=== PATIENT | female | born 1975 | race Caucasian/White ===

== ENCOUNTER 2021-10-25 14:36 | Emergency (ER) | payer BC ==
[~2021-10-25] VITALS: Ht 162.6 cm; Wt 64.4 kg
--- NOTE | 2021-10-25 15:10 | NUR ---
Pt triaged and placed in tent.
[2021-10-25 15:14] VITALS: BP_SYST 133
--- NOTE | 2021-10-25 15:35 | NUR ---
Patient to ER bed 6 to gown for evaluation. Side rails up. Report given to DICKSON Wilson.
--- NOTE | 2021-10-25 15:37 | NUR ---
DR JUAN DAVID THOMAS ROOM FOR EXAM
--- NOTE | 2021-10-25 15:41 | NUR ---
PT COMES IN TO ER WITH MULTIPLE COMPLAINTS, STATES HER WANTED HER TO COME IN AND GET CHECKED OUT. PT ADMITS THAT SHE'S GOING UNDER STRESSS AT WORK AND GOING THRU EMOTIONAL STRESS BECAUSE SHE IS GOING THRU MENOPAUSE. STATES HER HANDS FEEL NUMB AND TINGLING. DENIES ANY CP OR SOB. RESP EVEN AND UNLABORED.
--- NOTE | 2021-10-25 15:49 | NUR ---
EKG BEING DONE ATT THIS TIME.
--- NOTE | 2021-10-25 16:05 | NUR ---
Patient given written and verbal discharge instructions and verbalizes understanding. ER MD discussed with patient the results and treatment provided. Patient in stable condition. ID arm band removed. No prescriptions given. Patient educated on pain management and to follow up with PMD. Pain Scale 0. Opportunity for questions provided and answered. Medication side effect fact sheet provided.
== END 2021-10-25 16:11 | disposition home or self-care (01) ==
LOC: SED 14:36
DX: F41.9 Anxiety disorder, unspecified (principal); F43.9 Reaction to severe stress, unspecified; R00.0 Tachycardia, unspecified
CPT/HCPCS: 93005; 99283

== ENCOUNTER 2023-03-13 18:48 | Emergency (ER) | payer BC ==
[~2023-03-13] VITALS: Ht 162.6 cm; Wt 67.1 kg
[2023-03-13 19:03] VITALS: BP_SYST 142
[2023-03-13 20:10] LABS: BASOPHILS # (AUTO) 0.1 K/uL (0.0-0.2); BASOPHILS % (AUTO) 1.1 % (0.0-2.0); EOSINOPHILS # (AUTO) 0.1 K/uL (0.0-0.4); EOSINOPHILS % (AUTO) 1.3 % (0.0-4.0); HEMATOCRIT 44.3 % (36-48); HEMOGLOBIN 14.6 g/dL (12.0-16.0); LYMPHOCYTES # (AUTO) 1.8 K/uL (1.0-5.5); LYMPHOCYTES % (AUTO) 30.5 % (20.5-51.5); MEAN CORPUSCULAR HEMOGLOBIN 29 pg (27-31); MEAN CORPUSCULAR HGB CONC 33 % (32-36); MEAN CORPUSCULAR VOLUME 89 fL (79.0-98.0); MONOCYTES # (AUTO) 0.6 K/uL (0.0-1.0); MONOCYTES % (AUTO) 9.2 % (1.7-9.3); NEUTROPHILS # (AUTO) 3.5 K/uL (1.8-7.7); NEUTROPHILS % (AUTO) 57.9 % (40.0-70.0); PLATELET COUNT (AUTO) 199 K/uL (130-430); RED BLOOD CELL COUNT(AUTO) 4.96 MIL/uL (4.2-6.2); RED CELL DISTRIBUTION WIDTH 14.1 % (9.0-15.0)
[2023-03-13 20:15] LABS: BILIRUBIN,URINE NEGATIVE (NEGATIVE); BLOOD, URINE NEGATIVE (NEGATIVE); CLARITY/URINE CLEAR (CLEAR); COLOR,URINE YELLOW (YELLOW); GLUCOSE,URINE NEGATIVE (NEGATIVE); KETONES,URINE NEGATIVE (NEGATIVE); LEUKOCYTE ESTERASE ,URINE 1+ (NEGATIVE); NITRITE, URINE NEGATIVE (NEGATIVE); PH,URINE 6.5 (5.0-8.0); PROTEIN URINE NEGATIVE (NEGATIVE); UROBILINOGEN,URINE 0.2 (0.2-1.0)
[2023-03-13 20:15] LABS: ALBUMIN 4.1 g/dL (3.4-4.8); CALCIUM 9.1 mg/dL (8.4-11.0); CREATININE 0.59 mg/dL (0.55-1.30); TOTAL BILIRUBIN 0.5 mg/dL (0.0-1.0)
[2023-03-13 20:27] LABS: BACTERIA,URINE RARE /HPF (None Seen); MUCUS,URINE None Seen /LPF (None Seen); RBC,URINE NONE SEEN /HPF (0-3); WBC,URINE 0-3 /HPF (0-3)
[2023-03-13] MEDS ORDERED: NAPR-1172 PO (22:00)
[2023-03-13 23:02] VITALS: BP_SYST 127
--- NOTE | 2023-03-13 23:10 | NUR ---
Patient given written and verbal discharge instructions and verbalizes understanding. ER MD discussed with patient the results and treatment provided. Patient in stable condition. ID arm band removed. Rx of given. Patient educated on pain management and to follow up with PMD. Pain Scale . Opportunity for questions provided and answered. Medication side effect fact sheet provided.
== END 2023-03-13 22:57 | disposition home or self-care (01) ==
LOC: SED 18:48
DX: R10.9 Unspecified abdominal pain (principal); R39.15 Urgency of urination; R35.0 Frequency of micturition; Z79.899 Other long term (current) drug therapy
CPT/HCPCS: 36415; 76770; 80053; 81000; 81025; 85025; 99284